=== PATIENT | female | born 2000 | race Hispanic/Latino ===

== ENCOUNTER 2023-01-25 14:44 | Emergency (ER) | payer BC ==
[~2023-01-25] VITALS: Ht 160 cm; Wt 60.5 kg
[2023-01-25] MEDS ORDERED: MACR100C43 PO (17:32)
[2023-01-25 17:41] VITALS: BP 126/76
== END 2023-01-25 17:51 | disposition home or self-care (01) ==
LOC: M ED 14:44
DX: N39.0 Urinary tract infection, site not specified (principal); N83.209 Unspecified ovarian cyst, unspecified side; N28.1 Cyst of kidney, acquired; Z88.1 Allergy status to other antibiotic agents